=== PATIENT | male | born 1975 | race Caucasian/White ===

== ENCOUNTER → 2018-09-06 | Outpatient (REF) | payer BC ==
[~2018-09-06] MED LIST: PRED-1 PO; PRED20TA6 PO
[2018-09-06 13:36] LABS: PLATELET COUNT, AUTOMATED 59 K/uL (150-450)
== END ==
PROVIDERS: ATTEND Nurse Practitioner Family
DX: Z86.2 Personal history of diseases of the blood and blood-forming organs and certain disorders involving the immune mechanism (principal)
CPT/HCPCS: 82040; 82247; 82310; 82374; 82435; 82565; 82947; 84075; 84132; 84155; 84295; 84450; 84460; 84520; 85025

== ENCOUNTER 2018-09-26 08:24 | Outpatient (RCR) | payer BC ==
[2018-09-26 14:06] VITALS: BP 134/85
--- NOTE | 2018-09-26 21:14 | ONCOLOGY FOLLOW UP NOTE ---
EVENT DATE: September 26, 2018 CHIEF COMPLAINT Patient is here today for evaluation of his ITP. Patient had CBC done at [facility] yesterday, which revealed a decreased platelet count at 17,000. It appears this was repeated with minimal change at 19,000. HISTORY OF PRESENT ILLNESS Roberto is here today for followup evaluation after calling our office and notifying us of lab results which he had drawn yesterday. He was not symptomatic and was not having any bleeding, but his platelet count did drop down to between 17,000 to 19,000 from previous 60,000 to 80,000 range. As a result, we initiated him on prednisone 40 mg yesterday as he has been instructed to start prednisone if platelets are 20,000 or less. He otherwise continues to feel well and does not feel symptomatic due to his ITP. He denies any abnormal bruising, to include no widespread purpura or petechiae. He believes that the last course of prednisone that he took for his ITP may have been approximately six months ago. He believes that he typically requires one to two courses of prednisone per year for his ITP. He denies any recent fevers, chills, or infections. He tells me that he usually has CBC performed at [facility] at least once every six weeks, weekly when on a prednisone taper. He tells me that he does not like to follow up here very often because he does not feel that there is anything new that he needs to know of regarding his condition. He does state that he will go to Urgent Care if needed. ONCOLOGY HISTORY History of ITP dating back to May 2008. Patient typically has some prednisone at home and initiates prednisone 40 mg when platelets fall below 20,000. He reports that he does continue with weekly labs, though increases up to every six weeks once labs are at least 60,000 or above. PAST MEDICAL HISTORY ITP, as noted above. I do see documentation of ITP dating back to May 2008. FAMILY HISTORY Noncontributory. SOCIAL HISTORY The patient is a nonsmoker and nondrinker. There is no history of illicit drug use. ALLERGIES No known drug allergies. CURRENT MEDICATIONS None. REVIEW OF SYSTEMS A 12-point review of systems is performed today and is negative other than as stated above. PHYSICAL EXAMINATION VITAL SIGNS: Weight per chart, last 84.2 kg. T 97.4 F, P 88, R 16, BP 134/85, oxygen saturation 96% on room air. GENERAL: Patient is a 43-year-old gentleman who appears well nourished, well hydrated, and is in no acute distress. He appears overall quite healthy. HEAD: Atraumatic, normocephalic. EYES: Anicteric sclerae. ENT, MOUTH: Moist mucous membranes. No suspicious oral ulcerations or lesions. NECK: Supple. No lymphadenopathy. No JVD. CARDIAC: Regular rate and rhythm. No ectopy. LUNGS: Clear to auscultation bilaterally. No shortness of breath on examination. Chest expansion is symmetrical, and breathing is unlabored. NEUROLOGIC: Grossly nonfocal. Patient is awake, alert, and oriented times three. Strength is 5/5 throughout. Gait is normal. PSYCHIATRIC: Mood and affect are within normal limits. Patient does have some mild anxiety and frustration voiced during examination regarding his chronic ITP. DERM: Examination does not reveal any suspicious bruising or signs of bleeding, which include no petechiae and no widespread purpura. LABORATORY CBC on 09/25/18 at [facility]: WBC 5.4, ANC 3.4, hemoglobin 16.1, hematocrit 47.8%, platelets initially 17,000. Repeat revealed only minimally changed to 19,000. IMPRESSION AND PLAN Roberto is a 43-year-old gentleman with history of idiopathic thrombocytopenic purpura dating back to 2007. He follows up with Dr. Ross. He reports that he continues to have labs on an outpatient basis at [facility]. He has these done per his account at least every six weeks and weekly when he is having an exacerbation requiring prednisone. Platelet count yesterday was down to 17,000. He is asymptomatic and denies any bruising or bleeding. He feels well. Vital signs are stable. He does not appear critical. He is well versed on his condition. He is frustrated regarding his condition. His last followup here in clinic was in May 2017. I politely explained to the patient that we would optimally like to see him for follow-up at six-month intervals, and really not longer than one year. He expressed frustration and tells me that he does not feel as though he really needs to come in sooner than every six months or more as he feels we're not informing him of anything new regarding his ITP. Today, I reviewed with him the nature of idiopathic thrombocytopenic purpura, pathophysiology, as well as alternate therapies for idiopathic thrombocytopenic purpura, to include rituximab, IVIG, and even Nplate or Promacta. I did, however, explain to the patient that as he is not chronically thrombocytopenic and does respond very well to prednisone, our plan and recommendation is to continue to treat with oral corticosteroids if he is close to the 20,000 surinder or below. If in the future he were to become unresponsive or fail steroids, we could then discuss alternative therapies. He verbalized understanding. 1. Patient was provided with handwritten prescription for prednisone 10 mg tablets with instructions to taper. I did instruct him to start prednisone 40 mg or four tabs, which he began yesterday. He will take this for five days, then decrease it down to three tablets or 30 mg per day for five days, followed by 20 mg or two tablets per day for five days, then 10 mg or one tablet for five days, then half a tablet every other day, and then will stop. 2. He will have a repeat CBC next week at [facility]. If his platelets remain low or near 20,000, we will re-evaluate. He will begin his taper as long as he is above the 50,000 to 60,000 range. 3. Our office will fax orders to [facility] for weekly CBCs for the next few weeks while on prednisone, followed by CBC every six weeks. 4. I have asked the patient to return to the clinic for followup with physician in six months. He may follow up sooner in interim if needed. JOSHUA
== END 2018-11-28 13:25 | disposition home or self-care (01) ==
LOC: ONC 08:24
PROVIDERS: ATTEND Internal Medicine Medical Oncology
DX: D69.3 Immune thrombocytopenic purpura (principal)